=== PATIENT | male | born 1965 | race Caucasian/White ===

== ENCOUNTER 2022-09-23 09:41 | Outpatient (CLI) | payer MEDICAID ==
--- NOTE | 2022-09-23 13:19 | MRI Report ---
PROCEDURE: CERVICAL SPINE WO INDICATIONS: CERVICAL STRAIN TECHNIQUE: Noncontrast sagittal T1 spin echo and T2 fast spin echo, sagittal STIR, foraminal oblique sagittal T2 fast spin echo, and axial gradient echo or T2 fast spin echo through the cervical spine. COMPARISON: None. FINDINGS: Image quality: There is limited visualization of the spine secondary to artifact from susceptibility artifact from fusion hardware. Alignment and Curvature: There is 3 mm retrolisthesis of C3 on C4. Anterior fusion is present at C4- C7. Bone Marrow: Marrow demonstrates normal overall signal. Spinal Cord: Visualized spinal cord has normal size and signal. No cerebellar tonsillar herniation. Paraspinous Soft Tissues: No paravertebral masses. Prevertebral soft tissues are normal in thicknes s. Discs: Overall, [id number] desiccation throughout the cervical spine. C2-C3: No disc bulge, spinal stenosis or foraminal narrowing. C3-C4: Mild disc bulge with mild spinal stenosis. Mild to moderate left and minimal to mild right f oraminal narrowing. C4-C5: Mild disc bulge with mild spinal stenosis. Mild bilateral foraminal narrowing. C5-C6: Mild disc bulge with [id number] spinal stenosis. Moderate bilateral foraminal narrowing . C6-C7: Mild disc bulge with moderate spinal stenosis. Moderate bilateral foraminal narrowing. C7-T1: No disc bulge, spinal stenosis or foraminal narrowing. IMPRESSION: Multilevel fusion from C4 through C7. Multilevel spinal stenosis most notable at C5-6 and C6-7 predominantly secondary to disc bulge. Multilevel foraminal narrowing most severe C5-6 and C6-7. Reviewed by: Annamarie Angelo MD on 09/23/2022 1:18 PM PST Approved by: Annamarie Angelo MD on 09/23/2022 1:18 PM PST Station ID: [id number]
== END 2022-09-23 09:42 | disposition home or self-care (01) ==
LOC: DI 09:41
PROVIDERS: ATTEND Orthopaedic Surgery
DX: S16.1XXD Strain of muscle, fascia and tendon at neck level, subsequent encounter (principal); Z98.1 Arthrodesis status; M48.02 Spinal stenosis, cervical region; M47.812 Spondylosis without myelopathy or radiculopathy, cervical region

== ENCOUNTER 2023-07-05 17:28 | Outpatient (CLI) | payer MEDICAID | END 2023-07-05 17:29 | disposition home or self-care (01) | LOC: LAB.N 17:28 | PROVIDERS: ATTEND Nurse Practitioner | DX: Z53.9 Procedure and treatment not carried out, unspecified reason (principal) | CPT/HCPCS: 36415; 80050; 80061; 83721; 84153; 86787 ==

== ENCOUNTER 2023-07-06 17:14 | Outpatient (CLI) | payer MEDICAID ==
[2023-07-06 21:10] LABS: BASOPHILS % (AUTO) 0.8 %; EOSINOPHILS # (AUTO) 0.1 10^3/uL (0.0-0.7); EOSINOPHILS % (AUTO) 2.5 %; HCT - HEMATOCRIT 42.8 % (42.0-52.0); HGB - HEMOGLOBIN 14.1 g/dL (14.0-18.0); LYMPHOCYTES # (AUTO) 1.7 10^3/uL (1.5-3.5); LYMPHOCYTES % (AUTO) 32.7 %; MEAN CORPUSCULAR HGB CONC 32.9 g/dL (32.0-36.0); MEAN CORPUSCULAR VOLUME 91.1 fL (80.0-94.0); MEAN PLATELET VOLUME 10.6 fL (7.4-11.4); MONOCYTES # (AUTO) 0.5 10^3/uL (0.0-1.0); NEUTROPHILS # (AUTO) 2.7 10^3/uL (1.5-6.6); NEUTROPHILS % (AUTO) 53.8 %; PLT - PLATELET COUNT 298 10^3/uL (130-450); RED CELL DISTRIBUTION WIDTH 12.8 % (12.0-15.0); WHITE BLOOD COUNT 5.1 x10^3/uL (4.8-10.8)
[2023-07-06 21:17] LABS: ALBUMIN 4.5 g/dL (3.2-5.5); ALBUMIN/GLOBULIN RATIO 1.8 (1.0-2.2); ALKALINE PHOSPHATASE 50 IU/L (42-121); ALT ALANINE AMINOTRANSFERASE 11 IU/L (10-60); AST ASPARTATE AMINOTRANSFERASE 13 IU/L (10-42); BILIRUBIN,TOTAL 0.5 mg/dL (0.2-1.0); BUN - BLOOD UREA NITROGEN 14 mg/dL (6-20); CALCIUM 9.6 mg/dL (8.5-10.3); CARBON DIOXIDE - CO2 31 mmol/L (21-32); CHLORIDE 105 mmol/L (101-111); CHOL/HDL RATIO 4.8 (<5.0); CHOLESTEROL 213 mg/dL; GFR - MDRD 76 (>89); GLUCOSE 153 mg/dL (74-104); HDL CHOLESTEROL 44 mg/dL; LDL CHOLESTEROL,CALCULATED 135 mg/dL; LDL/HDL RATIO 3.1 (<3.6); POTASSIUM 3.7 mmol/L (3.5-4.5); SODIUM 142 mmol/L (135-145); TRIGLYCERIDES 171 mg/dL (48-352); VLDL CHOLESTEROL 34 mg/dL
[2023-07-06 21:38] LABS: THYROID STIMULATING HORMONE 2.04 uIU/mL (0.34-5.60)
== END 2023-07-06 17:15 | disposition home or self-care (01) ==
LOC: LAB.N 17:14
PROVIDERS: ATTEND Nurse Practitioner
DX: Z01.84 Encounter for antibody response examination (principal); Z12.5 Encounter for screening for malignant neoplasm of prostate; E78.1 Pure hyperglyceridemia; E66.9 Obesity, unspecified; E11.9 Type 2 diabetes mellitus without complications
CPT/HCPCS: 36415; 80050; 80061; 83721; 84153; 86787

== ENCOUNTER 2023-10-11 15:51 | Outpatient (CLI) | payer MEDICAID ==
[2023-10-11 18:18] LABS: CHOLESTEROL 204 mg/dL; HDL CHOLESTEROL 51 mg/dL; LDL CHOLESTEROL,CALCULATED 136 mg/dL; LDL/HDL RATIO 2.7 (<3.6); TRIGLYCERIDES 87 mg/dL (48-352); VLDL CHOLESTEROL 17 mg/dL
[2023-10-11 18:31] LABS: CREATININE,URINE 242.4 mg/dL; MICROALBUM/CREATININE RATIO,UR 8.3 ug/mg (<30.0)
[2023-10-11 21:32] LABS: ESTIMATED AVERAGE GLUCOSE 140 mg/dL (70-100); HEMOGLOBIN A1c% 6.5 % (4.27-6.07)
== END 2023-10-11 15:52 | disposition home or self-care (01) ==
LOC: LAB.N 15:51
PROVIDERS: ATTEND Nurse Practitioner
DX: Z51.81 Encounter for therapeutic drug level monitoring (principal); E11.9 Type 2 diabetes mellitus without complications; E78.1 Pure hyperglyceridemia
CPT/HCPCS: 36415; 80061; 82043; 82570; 83036; 83721

== ENCOUNTER 2024-02-09 14:14 | Outpatient (CLI) | payer MEDICAID ==
[2024-02-09 18:09] LABS: CHOL/HDL RATIO 3.8 (<5.0); CHOLESTEROL 187 mg/dL; HDL CHOLESTEROL 49 mg/dL; LDL CHOLESTEROL,CALCULATED 113 mg/dL; LDL/HDL RATIO 2.3 (<3.6); TRIGLYCERIDES 127 mg/dL (48-352); VLDL CHOLESTEROL 25 mg/dL
[2024-02-09 20:32] LABS: ESTIMATED AVERAGE GLUCOSE 160 mg/dL (70-100); HEMOGLOBIN A1c% 7.2 % (4.27-6.07)
== END 2024-02-09 14:15 | disposition home or self-care (01) ==
LOC: LAB.N 14:14
PROVIDERS: ATTEND Nurse Practitioner
DX: E78.5 Hyperlipidemia, unspecified (principal); E11.9 Type 2 diabetes mellitus without complications; G62.9 Polyneuropathy, unspecified
CPT/HCPCS: 36415; 80061; 82607; 83036; 83721

== ENCOUNTER 2024-05-11 14:04 | Outpatient (CLI) | payer MEDICAID ==
[2024-05-11 18:24] LABS: CHOL/HDL RATIO 4.7 (<5.0); CHOLESTEROL 206 mg/dL; HDL CHOLESTEROL 44 mg/dL; LDL CHOLESTEROL,CALCULATED 135 mg/dL; LDL/HDL RATIO 3.1 (<3.6); TRIGLYCERIDES 134 mg/dL; VLDL CHOLESTEROL 27 mg/dL
[2024-05-11 21:09] LABS: ESTIMATED AVERAGE GLUCOSE 134 mg/dL (70-100); HEMOGLOBIN A1c% 6.3 % (4.27-6.07)
== END 2024-05-11 14:05 | disposition home or self-care (01) ==
LOC: LAB.N 14:04
PROVIDERS: ATTEND Nurse Practitioner
DX: E78.5 Hyperlipidemia, unspecified (principal); Z51.81 Encounter for therapeutic drug level monitoring; E11.9 Type 2 diabetes mellitus without complications
CPT/HCPCS: 36415; 80061; 83036; 83721